=== PATIENT | female | born 1955 | race African-American/Black ===

== ENCOUNTER → 2016-10-14 | Day surgery (SDC) | payer OTHER ==
[2016-10-12 12:27] VITALS: BMI 46.4
[~2016-10-14] MED LIST: ACETAMINOPHEN 325 MG TABLET (FP) PO PRN; LACTATED RINGERS SOLUTION 1,000 ML IV SCH; LIDOCAINE HCL/PF 2% SDV 5ML VIAL ONE; MIDAZOLAM HCL 2 MG/2 ML SINGLE DOSE VIAL ONE; ONABOTULINUMTOXINA 200 UNIT/VIAL VIAL IM ONE; ONABOTULINUMTOXINA 200 UNIT/VIAL VIAL NR ONE; ONDANSETRON 4 MG/2 ML VIAL IVPUSH PRN; PROPOFOL 20 ML ONE; ROCURONIUM BROMIDE 50 MG/5 ML VIAL ONE; SUCCINYLCHOLINE CHLORIDE 200 MG/10 ML VIAL ONE; ceFAZolin SODIUM 1 GM VIAL IVPB ONE; oxyCODONE HCL 5 MG TABLET PO PRN
[2016-10-14 12:00] VITALS: TEMP 98
--- NOTE | 2016-10-14 12:21 | HP ---
DATE OF ADMISSION: HISTORY: The patient is a 60-year-old female with a history of overactive bladder. She has failed multiple medical and physical training. She still continues to have severe urgency, frequency, nocturia. She does have a history of chronic pancreatitis, thyroid cysts. She is morbidly obese. She has hypertension, anemia, sleep apnea, allergic rhinitis, degenerative joint disease, gastroesophageal reflux disease. MEDICATIONS: She is on multiple medications including lisinopril and NSAIDs. PHYSICAL EXAMINATION: Chest: Clear. Abdomen: Globus and nontender. Pelvis: Reveals a grade 2 cystorectocele with some atrophic vaginitis. Extremities: Show full range of motion with no clubbing, cyanosis, or edema. The patient will undergo a Botox bladder injection. The procedure has been explained fully to the patient, and she is aware. Kathy [id number]
[2016-10-14 12:30] VITALS: BP 148/76; PULSE 59
--- NOTE | 2016-10-14 14:40 | OP ---
DATE OF OPERATION: PREOPERATIVE DIAGNOSIS: Overactive bladder. POSTOPERATIVE DIAGNOSIS: Overactive bladder. OPERATIVE PROCEDURE: Cystourethroscopy and Botox injection into bladder mucosa. ANESTHESIA: General. DESCRIPTION OF PROCEDURE: Under above stated anesthesia, the patient is prepped and draped in the usual sterile manner. She is placed in the dorsal lithotomy position. Then 200 units of Botox was mixed with 20 mL of normal saline. Cystoscopy was performed in the usual fashion. The trigone revealed squamous metaplasia. The external genitalia revealed a grade 2 cystorectocele. There were signs of atraumatic vaginitis. Urine was collected for C and S and cytology. Ureteral orifices were within normal limits with efflux of clear urine. No lesions were noted. No calculi were seen. No trabeculation was evident. Injection of the Botox saline mixture in 1 cm increments was started 1 cm above the right ureteral orifice and a total of 5 injections in a row were performed from the right lateral wall of the bladder to the left lateral wall of the bladder. Another 5 injections were performed 1 cm above the 1st row. A 3rd row was also performed from the right lateral wall to the left lateral wall, and a 4th row of 5 injections of 1 mL mixture of Botox and saline was injected into the submucosa from the right lateral wall to the left lateral wall. There was 20 mL in total and 200 units of Botox was placed into the patient's bladder. No active bleeding was noted. Therefore, the bladder was emptied. The scope was removed. The patient tolerated the procedure well. She returned to the recovery room in good condition. [id number]
--- NOTE | 2016-10-17 13:26 | PATH ---
Cytology Non-Gynecological Report Patient Name: YESSENIA NAVAS [facility]. Rec. #: [id number] /Age/Gender: 1955 (Age: 60) / F Account: [id number] Location: [facility] SURGICAL Taken: 10/14/2016 Received: 10/14/2016 Reported: 10/17/2016 Physicians: Che Benson M.D. Specimen(s) Received URINE Clinical History Neurogenic bladder Final Diagnosis URINE FOR CYTOLOGY: SATISFACTORY FOR EVALUATION. NO MALIGNANT CELLS IDENTIFIED. REACTIVE UROTHELIAL CELLS. REACTIVE SQUAMOUS CELLS. RED BLOOD CELLS. Electronically Signed Jer Maynard M.D. Gross Description Received is 15 cc of yellow fluid fresh. One cytofunnel slide and one cell block are made.
== END | disposition home or self-care (01) ==
LOC: JASU-SURG 08:41
PROVIDERS: ATTEND Urology
PROC: 3E0K8GC Introduction of Other Therapeutic Substance into Genitourinary Tract, Via Natural or Artificial Opening Endoscopic (ICD-10-PCS; principal; 2016-10-14 09:00)
DX: N32.81 Overactive bladder (principal)
CPT/HCPCS: 52287; J0587; 87086; 87186; 88108; 88305-TC; 94760; J0585

== ENCOUNTER 2017-09-29 10:25 | Day surgery (SDC) | payer OTHER ==
[2017-09-28 10:39] VITALS: BMI 47.3
[2017-09-29] MEDS ORDERED: ONABOTULINUMTOXINA 200 UNIT/VIAL VIAL NR ONE (12:30)
[2017-09-29] MEDS ORDERED: ACETAMINOPHEN 325 MG TABLET (FP) PO PRN (12:39)
[2017-09-29] MEDS ORDERED: MIDAZOLAM HCL 2 MG/2 ML SINGLE DOSE VIAL ONE ×2 (12:50)
[2017-09-29] MEDS ORDERED: ceFAZolin SODIUM 1 GM VIAL IVPB ONE (12:55)
[2017-09-29] MEDS ORDERED: ONABOTULINUMTOXINA 200 UNIT/VIAL VIAL IM ONE (13:00)
[2017-09-29] MEDS ORDERED: oxyCODONE HCL 5 MG TABLET PO PRN (13:22)
[2017-09-29] MEDS ORDERED: PROMETHAZINE HCL 25 MG/1 ML VIAL IVPB PRN (13:22)
[2017-09-29] MEDS ORDERED: ONDANSETRON 4 MG/2 ML VIAL IVPUSH PRN (13:22)
[2017-09-29] MEDS ORDERED: LACTATED RINGERS SOLUTION 1,000 ML IV SCH (13:30)
[2017-09-29 14:05] VITALS: TEMP 98.6
[2017-09-29 14:18] VITALS: BP 140/69; PULSE 68
--- NOTE | 2017-09-29 15:26 | OP ---
DATE OF OPERATION: 09/29/2017 SURGEON: Rosa M Woods MD PREOPERATIVE DIAGNOSIS: Overactive neurogenic bladder with urgency, frequency, and hesitancy incontinence. POSTOPERATIVE DIAGNOSIS: Overactive neurogenic bladder with urgency, frequency, and hesitancy incontinence. OPERATIVE PROCEDURE: Cystourethroscopy, urethral dilation, and Botox injection in the bladder. ANESTHESIA: General. DESCRIPTION OF PROCEDURE: Under above stated anesthesia, patient was prepped and draped in the usual sterile manner. She was placed in the dorsal lithotomy position. External genitalia revealed atrophic vaginitis with a stenosed meatus. Using straight [place] sounds, the meatus was calibrated at 10-Czech and dilated to 26-Czech without difficulty or bleeding. Cystoscopy was then performed under direct vision. Urine was collected for culture as well as cytology. Inspection of the bladder revealed a fine grade 1 trabeculation. No lesions were noted. No calculi were seen. Ureteral orifices were within normal limits with efflux of clear urine. Therefore, 200 units of Botox mixed with 200 units of sterile water. The solution was then injected at 1 mL increments in a row of five 1 cm above the intertrigonal ridge beginning at the right and ending at the left. A second row of five 1 cm above that was performed. A third row and then a fourth row of five 1-cm units were injected. No active bleeding was noted. The bladder was emptied. The scope was removed. The patient tolerated the procedure well. She returned to the recovery room in good condition. ROSA M WOODS M.D. [id number]
--- NOTE | 2017-10-03 16:42 | PATH ---
Cytology Non-Gynecological Report Patient Name: YESSENIA NAVAS [facility]. Rec. #: [id number] /Age/Gender: 1955 (Age: 61) / F Account: [id number] Location: [facility] SURGICAL Taken: 09/29/2017 Received: 10/02/2017 Reported: 10/03/2017 Physicians: Che Benson M.D. Specimen(s) Received URINE VOIDED Clinical History Overactive neurogenic bladder Final Diagnosis URINE FOR CYTOLOGY: SATISFACTORY FOR EVALUATION. NEGATIVE FOR HIGH GRADE UROTHELIAL CARCINOMA. UROTHELIAL CELLS AND SCATTERED SQUAMOUS EPITHELIAL CELLS PRESENT. Electronically Signed Jeannine Arias M.D. Gross Description Approximately 20 cc of yellow fluid received fresh. Two cytofunnels prepared.
== END 2017-09-29 15:00 | disposition home or self-care (01) ==
LOC: JASU-SURG 10:25
PROVIDERS: ATTEND Urology
PROC: 3E0K8GC Introduction of Other Therapeutic Substance into Genitourinary Tract, Via Natural or Artificial Opening Endoscopic (ICD-10-PCS; principal; 2017-09-29 12:00)
DX: N32.81 Overactive bladder (principal); R35.0 Frequency of micturition; R39.11 Hesitancy of micturition; E11.9 Type 2 diabetes mellitus without complications
CPT/HCPCS: 88108; 94760; J0585

== ENCOUNTER 2017-12-18 13:36 | Observation (INO) | payer OTHER ==
[2017-12-18 14:16] VITALS: BMI 51.3
--- NOTE | 2017-12-18 14:24 | PDOC ---
Attending Attestation - Resident Resident Name: Keanu Arizmendi - HPI HPI: 12/22/17 01:34 Pt presents to the ED complaining of a one day history of substernal chest pain. Denies shortness of breath. History of abnormal EKG as per Dr. Portillo. Denies nausea, vomiting or lightheadness. - Physicial Exam PE: 12/22/17 01:46 Agree with resident exam. PAtient is in no acute distress and lungs are clear. Abdomen is non tender. - Medical Decision Making 12/22/17 01:47 Pt presents to the ED complaining of chest pain. Multiple risk factors for cardiac disease. EKG shows no signs of ischemia and cardiac enzymes are negative, but will admit to medicine for rule out ACS given her multiple risk factors.
--- NOTE | 2017-12-18 14:27 | PDOC ---
History of Present Illness - General Chief Complaint: Blood Pressure Problem Stated Complaint: CHEST PAIN Time Seen by Provider: 12/18/17 14:07 History Source: Patient, Primary Care Provider Exam Limitations: No Limitations - History of Present Illness Initial Comments: 12/18/17 14:22 The patient is a 62F with a PMH of anemia, asthma, DM, HTN, HL, GERD who presents to the ER with complaints of chest pain sent by her PCP for CP and abnormal EKG. The patient states that her CP started this morning, had a gradual onset, is described as pressure/heaviness that is retrosternal and radiates to her jaw. She denies any exacerbating or alleviating factors. She also endorses dysuria without hematuria or discharge. Past History - Past Medical History Allergies/Adverse Reactions: Allergies Allergy/AdvReac Type Severity Reaction Status Date / Time Latex, Natural Rubber Allergy Intermediate Rash Verified 12/18/17 14:13 erythromycin base Allergy Itching Verified 12/18/17 14:13 NSAIDS (Non-Steroidal Allergy Itching Verified 12/18/17 14:13 Anti-Inflamma ciprofloxacin [From Cipro] AdvReac Severe Nausea Verified 12/18/17 14:13 ciprofloxacin HCl AdvReac Severe Nausea Verified 12/18/17 14:13 [From Cipro] Home Medications: Ambulatory Orders Allopurinol [Zyloprim -] 300 mg PO DAILY 10/12/16 Amlodipine Besylate [Norvasc -] 10 mg PO DAILY 10/12/16 Cetirizine HCl [Zyrtec -] 10 mg PO DAILY 10/12/16 Dexlansoprazole [Dexilant] 60 mg PO DAILY 10/12/16 Docusate Sodium 100 mg PO BID PRN 10/12/16 Gabapentin 300 mg PO BID 10/12/16 Insulin Glargine,Hum.rec.anlog [Lantus Solostar PEN -] 50 units SQ DAILY Insulin NPH Human Isophane [Humulin N] 10 unit SQ AC 10/12/16 Levothyroxine [Synthroid -] 75 mcg PO DAILY 10/12/16 Lipase/Protease/Amylase [Tete Zamarripa 36,000 Units Capsule] 1 each PO BID 10/12/16 Metoprolol Tartrate 100 mg PO BID 10/12/16 Morphine Sulfate [Antonina] 10 mg PO TID 10/12/16 Valsartan [Diovan] 320 mg PO DAILY 10/12/16 metFORMIN HCL [Glucophage -] 500 mg PO BID 10/12/16 Cephalexin [Keflex] 500 mg PO TID 7 Days #21 capsule 09/29/17 Oxycodone HCl/Acetaminophen [Percocet 5-325 mg Tablet] 1 combo PO Q4H PRN #1 tablet MDD 6 09/29/17 Anemia: Yes Asthma: Yes Cancer: No Cardiac Disorders: No CVA: No COPD: No CHF: No Dementia: No Diabetes: Yes GI Disorders: Yes (REFLUX) Disorders: No HTN: Yes Hypercholesterolemia: No Kidney Stones: No Liver Disease: Yes (- FATTY LIVER) Seizures: No Thyroid Disease: No - Surgical History Abdominal Surgery: No Appendectomy: No Cardiac Surgery: No Cholecystectomy: No Lung Surgery: No Neurologic Surgery: No Orthopedic Surgery: Yes (arthroscopy knee) - Immunization History Immunization Up to Date: Yes - Suicide/Smoking/Psychosocial Hx Smoking Status: Yes Smoking History: Former smoker Have you smoked in the past 12 months: No Number of Cigarettes Smoked Daily: 10 If you are a former smoker, when did you quit?: 4 years ago Information on smoking cessation initiated: No 'Breaking Loose' booklet given: 12/14/11 Hx Alcohol Use: No Drug/Substance Use Hx: No Substance Use Type: Marijuana Hx Substance Use Treatment: No Review of Systems - Review of Systems Able to Perform ROS?: Yes Comments:: 12/18/17 14:49 GENERAL/CONSTITUTIONAL: No fever or chills. No weakness. HEAD, EYES, EARS, NOSE AND THROAT: No change in vision. No ear pain or discharge. No sore throat. CARDIOVASCULAR: Positive for chest pain. No palpitations or lightheadedness. RESPIRATORY: No cough, wheezing, shortness of breath, or hemoptysis. GASTROINTESTINAL: No nausea, vomiting, diarrhea, constipation, or abdominal pain. GENITOURINARY: No dysuria, frequency, hematuria, or change in urination. MUSCULOSKELETAL: No joint or muscle swelling or pain. No neck or back pain. SKIN: No rash or lesions. NEUROLOGIC: No headache, numbness, tingling, weakness, loss of consciousness, or change in strength/sensation. ENDOCRINE: No increased thirst. No abnormal weight change. HEMATOLOGIC/LYMPHATIC: No anemia, easy bleeding, or history of blood clots. ALLERGIC/IMMUNOLOGIC: No hives or skin allergy. Is the patient limited Slovak proficient: No *Physical Exam - Vital Signs Last Vital Signs Temp Pulse Resp BP Pulse Ox 97.8 F 56 L 20 165/72 98 12/18/17 14:13 12/18/17 14:13 12/18/17 14:13 12/18/17 14:13 12/18/17 14:13 - Physical Exam Comments: 12/18/17 16:33 GENERAL: Well developed, well nourished, morbidly obese. Awake and alert. No acute distress. HEENT: Normocephalic, atraumatic. Hearing grossly normal. Moist mucous membranes. PERRLA, EOMI. No conjunctival pallor. Sclera are non-icteric. NECK: Supple. Full ROM. CARDIOVASCULAR: Regular rate and rhythm, distant heart sounds likely 2/2 to body habitus. No murmurs, rubs, or gallops. PULMONARY: No evidence of respiratory distress. Lungs clear to auscultation bilaterally. No wheezing, rales or rhonchi. ABDOMINAL: Soft. Non-tender. Non-distended. No rebound or guarding. GENITOURINARY: No CVA tenderness bilaterally. MUSCULOSKELETAL: Normal range of motion at all joints. No bony deformities or tenderness. EXTREMITIES: No cyanosis. No clubbing. No edema. No calf tenderness or swelling. SKIN: Warm and dry. Normal capillary refill. No rashes. No jaundice. NEUROLOGICAL: Alert, awake, appropriate. Cranial nerves 2-12 intact. Normal speech. Gait is normal without ataxia. PSYCHIATRIC: Cooperative. Good eye contact. Appropriate mood and affect. Moderate Sedation - Procedure Monitoring Vital Signs: Vital Signs Temp Pulse Resp BP Pulse Ox 97.8 F 56 L 20 165/72 98 12/18/17 14:13 12/18/17 14:13 12/18/17 14:13 12/18/17 14:13 12/18/17 14:13 ED Treatment Course - LABORATORY CBC & Chemistry Diagram: 12/18/17 14:50 12/18/17 14:50 - RADIOLOGY Radiology Studies Ordered: Category Date Time Status CHEST X-RAY PORTABLE* [RAD] Stat Radiology 12/18/17 14:16 Ordered Medical Decision Making - Medical Decision Making 12/18/17 16:31 The patient is a 62F with an extensive PMH who presents with chest tightness. The patient has a HEART score of 4. Negative troponin, CBC, but UA indicates UTI. Will treat UTI and admit for obs tele. Pt is resting comfortably in bed. 12/18/17 16:44 I have endorsed the patient to [facility] for admission under Dr. Guzman. Will give 1 g ceftriaxone for UTI. *DC/Admit/Observation/Transfer Diagnosis at time of Disposition: Chest pain Qualifiers: Chest pain type: unspecified Qualified Code(s): R07.9 - Chest pain, unspecified - Discharge Dispostion Condition at time of disposition: Stable Decision to Admit order: Yes - Referrals Referrals: William Childs MD [Primary Care Provider] - - Patient Instructions - Post Discharge Activity
[2017-12-18] MEDS ORDERED: morphine SO4 SUSTAINED ACTING 15 MG TABLET.SA PO ONE (14:29)
[2017-12-18] MEDS ORDERED: morphine SO4 SUSTAINED ACTING 15 MG TABLET.SA ONE ×2 (14:44→21:16)
[2017-12-18 14:53] LABS: URINE APPEARANCE CLOUDY; URINE BILIRUBIN NEGATIVE (<2.0 mg/dL); URINE COLOR YELLOW; URINE GLUCOSE (UA) 3+ (NEGATIVE); URINE KETONE NEGATIVE (NEGATIVE); URINE LEUK ESTERASE 3+ (NEGATIVE); URINE NITRITE POSITIVE (NEGATIVE); URINE PROTEIN 1+ (NEGATIVE); URINE UROBILINOGEN NEGATIVE mg/dL (0.2-1.0)
[2017-12-18 14:57] LABS: BASO % 1.5 % (0-2.0); HEMOGLOBIN 13.4 GM/dL (10.7-15.3); LYMPH % 32.8 % (8-40); MCH 28.5 pg (25.7-33.7); MCHC 31.8 g/dl (32.0-36.0); MEAN CELL VOLUME 89.4 fl (80-96); MEAN PLT VOLUME 8.4 fl (7.5-11.1); MONO % 6.4 % (3.8-10.2); NEUT % 57.3 % (42.8-82.8); PLATELET COUNT 358 K/MM3 (134-434); RDW 15.7 % (11.6-15.6)
[2017-12-18 15:08] LABS: EPI CELLS MANY /HPF (FEW); URINE BACTERIA MANY /hpf (NONE SEEN); URINE MUCUS FEW
[2017-12-18 15:22] LABS: ALBUMIN 3.4 g/dl (3.4-5.0); ANION GAP 6 (8-16); BILIRUBIN,TOTAL 0.5 mg/dL (0.2-1.0); BLOOD UREA NITROGEN 12 mg/dL (7-18); CHLORIDE 101 mmol/L (98-107); CO2 29 mmol/L (21-32); CREATININE 0.8 mg/dL (0.55-1.02); POTASSIUM 4.4 mmol/L (3.5-5.1); SODIUM 136 mmol/L (136-145); TOT PROT 7.2 g/dl (6.4-8.2)
[2017-12-18 15:29] LABS: ALK PHOS 149 U/L (45-117)
[2017-12-18] MEDS ORDERED: INSULIN REGULAR HUMAN 100 UNITS/ML *VIAL IVPUSH ONE (15:34)
[2017-12-18] MEDS ORDERED: INSULIN REGULAR HUMAN 100 UNITS/ML *VIAL ONE ×2 (15:41→21:24)
[2017-12-18 16:30] LABS: SGOT/AST 21 U/L (15-37); SGPT/ALT 34 U/L (12-78)
[2017-12-18] MEDS ORDERED: CEFTRIAXONE 1,000 MG in DEXTROSE 5%-WATER - 50 ML IVPB ONE (16:46)
[2017-12-18 17:10] LABS: GLUCOSE,RANDOM 337 mg/dL (74-106)
[2017-12-18] MEDS ORDERED: CEFTRIAXONE 1 GM/50 ML BAG ONE (17:16)
--- NOTE | 2017-12-18 18:01 | EKG ---
Test Reason : Blood Pressure : / mmHG Vent. Rate : 061 BPM Atrial Rate : 061 BPM P-R Int : 152 ms QRS Dur : 082 ms QT Int : 430 ms P-R-T Axes : 049 -10 008 degrees QTc Int : 432 ms SINUS RHYTHM WITH MARKED SINUS ARRHYTHMIA CANNOT RULE OUT ANTERIOR INFARCT (CITED ON OR BEFORE 09-APR-2014) ABNORMAL ECG WHEN COMPARED WITH ECG OF 09-APR-2014 11:00, NO SIGNIFICANT CHANGE WAS FOUND Confirmed by BERTA AYERS MD ([id number]) on 12/18/2017 6:01:00 PM Referred By: Confirmed By:BERTA AYERS MD
[2017-12-18] MEDS ORDERED: DOCUSATE SODIUM 100 MG CAPSULE (FP) PO PRN (18:12)
--- NOTE | 2017-12-18 18:27 | HP ---
CHIEF COMPLAINT: EKG changes PCP: Dr. Olguin HISTORY OF PRESENT ILLNESS: This is a 62 year old female with PMHx of gout, morbid obesity, DM, neurogenic bladder, HTN, hysterectomy, tubal ligation, multiple bladder procedures, who was sent to the ED by her divemaster for EKG changes and intermittent chest pain. The patient reports that before her bladder botox in September 2017 she had an EKG that showed sinus bradycardia. She had the botox done at the time. She then states that she went to her pcp today and brought the EKGs and also states that sometimes she has tingling/tickling feeling in her left chest that is non-radiating. She denies any shortness of breath, however she reports that last week her scooter broke and she has had to walk more which is making her short of breath. She denies any dizziness, nausea, vomiting. She does report burning wit urination ER course was notable for: (1) Temp 97.8, pulse 56, BP 165/72, resp 20, O2 98% on RA (2) EKG with marked sinus arrhythmia (3) Trop x1 negative Recent Travel: denies PAST MEDICAL HISTORY: as above PAST SURGICAL HISTORY: as above Social History: Smoking: quit 4 years ago Alcohol: Occasional (had two drinks on her birthday) Drugs: Smokes marijuana on weekends Family History: Allergies Latex, Natural Rubber Allergy (Intermediate, Verified 12/18/17 14:13) Rash erythromycin base Allergy (Verified 12/18/17 14:13) Itching NSAIDS (Non-Steroidal Anti-Inflamma Allergy (Verified 12/18/17 14:13) Itching ciprofloxacin [From Cipro] Adverse Reaction (Severe, Verified 12/18/17 14:13) Nausea ciprofloxacin HCl [From Cipro] Adverse Reaction (Severe, Verified 12/18/17 14:13 ) Nausea HOME MEDICATIONS: Home Medications Medication Instructions Recorded Allopurinol [Zyloprim -] 300 mg PO DAILY 10/12/16 Amlodipine Besylate [Norvasc -] 10 mg PO DAILY 10/12/16 Cetirizine HCl [Zyrtec -] 10 mg PO DAILY 10/12/16 Dexlansoprazole [Dexilant] 60 mg PO DAILY 10/12/16 Docusate Sodium 100 mg PO BID PRN 10/12/16 Gabapentin 300 mg PO BID 10/12/16 Insulin Glargine,Hum.rec.anlog 50 units SQ DAILY 10/12/16 [Lantus Solostar PEN -] Insulin NPH Human Isophane 10 unit SQ AC 10/12/16 [Humulin N] Levothyroxine [Synthroid -] 75 mcg PO DAILY 10/12/16 Lipase/Protease/Amylase [Creon Dr 1 each PO BID 10/12/16 36,000 Units Capsule] Metoprolol Tartrate 100 mg PO BID 10/12/16 Morphine Sulfate [Antonina] 15 mg PO TID 10/12/16 Valsartan [Diovan] 320 mg PO DAILY 10/12/16 metFORMIN HCL [Glucophage -] 500 mg PO BID 10/12/16 REVIEW OF SYSTEMS CONSTITUTIONAL: Absent: fever, chills, diaphoresis, generalized weakness, malaise, loss of appetite, weight change HEENT: Absent: rhinorrhea, nasal congestion, throat pain, throat swelling, difficulty swallowing, mouth swelling, ear pain, eye pain, visual changes CARDIOVASCULAR: Abnormal EKG, occasional tingling in her chest. Absent: chest pain, syncope, palpitations, irregular heart rate, lightheadedness , peripheral edema RESPIRATORY: Absent: cough, shortness of breath, dyspnea with exertion, orthopnea, wheezing, stridor, hemoptysis GASTROINTESTINAL: Absent: abdominal pain, abdominal distension, nausea, vomiting, diarrhea, constipation, melena, hematochezia GENITOURINARY: Absent: dysuria, frequency, urgency, hesitancy, hematuria, flank pain, genital pain MUSCULOSKELETAL: Absent: myalgia, arthralgia, joint swelling, back pain, neck pain SKIN: Absent: rash, itching, pallor HEMATOLOGIC/IMMUNOLOGIC: Absent: easy bleeding, easy bruising, lymphadenopathy, frequent infections ENDOCRINE: Absent: unexplained weight gain, unexplained weight loss, heat intolerance, cold intolerance NEUROLOGIC: Absent: headache, focal weakness or paresthesias, dizziness, unsteady gait, seizure, mental status changes, bladder or bowel incontinence PSYCHIATRIC: Absent: anxiety, depression, suicidal or homicidal ideation, hallucinations. PHYSICAL EXAMINATION Vital Signs - 24 hr 12/18/17 14:13 Temperature 97.8 F Pulse Rate 56 L Respiratory 20 Rate Blood Pressure 165/72 O2 Sat by Pulse 98 Oximetry (%) GENERAL: Morbidly obese. Awake, alert, and fully oriented, in no acute distress. HEAD: Normal with no signs of trauma. EYES: Pupils equal, round and reactive to light, extraocular movements intact, sclera anicteric, conjunctiva clear. No lid lag. EARS, NOSE, THROAT: Ears normal, nares patent, oropharynx clear without exudates. Moist mucous membranes. NECK: Normal range of motion, supple without lymphadenopathy, JVD, or masses. LUNGS: Breath sounds equal, clear to auscultation bilaterally. No wheezes, and no crackles. No accessory muscle use. HEART: Regular rate and rhythm, normal S1 and S2 without murmur, rub or gallop. ABDOMEN: Soft, nontender, not distended, normoactive bowel sounds, no guarding, no rebound, no masses. No hepatomegaly or splenomegaly. MUSCULOSKELETAL: Normal range of motion at all joints. No bony deformities or tenderness. No CVA tenderness. UPPER EXTREMITIES: 2+ pulses, warm, well-perfused. No cyanosis. No clubbing. No peripheral edema. LOWER EXTREMITIES: Mild b/l lower extremity pitting edema. 2+ pulses, warm, well -perfused NEUROLOGICAL: Cranial nerves II-XII intact. Normal speech. Gait not observed PSYCHIATRIC: Cooperative. Good eye contact. Appropriate mood and affect. SKIN: Warm, dry, normal turgor, no rashes or lesions noted, normal capillary refill. Laboratory Results - last 24 hr 12/18/17 12/18/17 12/18/17 14:32 14:50 14:50 WBC 8.0 RBC 4.70 Hgb 13.4 Hct 42.0 MCV 89.4 MCH 28.5 MCHC 31.8 L RDW 15.7 H Plt Count 358 MPV 8.4 Neutrophils % 57.3 Lymphocytes % 32.8 D Monocytes % 6.4 Eosinophils % 2.0 Basophils % 1.5 Nucleated RBC % 0 Sodium 136 Potassium 4.4 Chloride 101 Carbon Dioxide 29 Anion Gap 6 L BUN 12 Creatinine 0.8 Creat Clearance w eGFR > 60 Random Glucose 337 H* Calcium 9.0 Total Bilirubin 0.5 D AST 21 ALT 34 Alkaline Phosphatase 149 H Creatine Kinase 91 Troponin I < 0.02 Total Protein 7.2 Albumin 3.4 Urine Color Yellow Urine Appearance Cloudy Urine pH 5.0 Ur Specific [place] 1.029 Urine Protein 1+ H Urine Glucose (UA) 3+ H Urine Ketones Negative Urine Blood 1+ H Urine Nitrite Positive Urine Bilirubin Negative Urine Urobilinogen Negative Ur Leukocyte Esterase 3+ H D Urine WBC (Auto) 268 Urine RBC (Auto) 8 Ur Epithelial Cells Many Urine Bacteria Many Urine Mucus Few Assessment: This is a 62 year old female with PMHx of gout, morbid obesity, DM, neurogenic bladder, HTN, hysterectomy, tubal ligation, multiple bladder procedures, who was sent to the ED by her divemaster for EKG changes and intermittent chest pain. Plan: 1) EKG changes? - Appears that no significant change was found when comparing EKG from today with EKG from 2014 - Trend troponins - Cardiac monitoring - F/u ECHO - F/u cardiology consult 2) UTI - Continue Ceftriaxone 3) DM - BGM ACHS - ISS ACHS - Levemir 50u sq daily - Continue Metformin 4) Gout - Continue Allopurinol 5) HTN - Continue Metoprolol bid - Continue Norvasc - Continue Diovan 6) Hypothyroidism - Continue Synthroid 7) F/E/N: - Diabetic diet - Monitor electrolytes 8) Prophylaxis: - OOB ambulating - Heparin 5,000u sq tid 9) Dispo: - Once condition improves CODE STATUS: FULL CODE Visit type - Emergency Visit Emergency Visit: Yes ED Registration Date: 12/18/17 Care time: The patient presented to the Emergency Department on the above date and was hospitalized for further evaluation of their emergent condition. - New Patient This patient is new to me today: Yes Date on this admission: 12/19/17 - Critical Care Critical Care patient: No Hospitalist Screening - Colonoscopy Questionnaire Colonoscopy Questionnaire: Colonoscopy Questionnaire - Patient: 50 - 75 years old and never had a screening colonoscopy: Unknown History of colon or rectal polyps, or CA: Unknown History of IBD, Crohn's disease or UC: Unknown History of abdominal radiation therapy as a child: Unknown - Relative: 1 with colon or rectal CA, or polyps at age 60 or younger: Unknown Colon or rectal CA diagnosed at age 45 or younger: Unknown Multiple relatives with colon or rectal CA: Unknown - Outcome: Screening Result: Negative Screen
[2017-12-18] MEDS ORDERED: METOPROLOL TARTRATE 50 MG TABLET (FP) ONE (20:38)
[2017-12-18] MEDS ORDERED: GABAPENTIN 100 MG CAPSULE (FP) ONE (20:38)
[2017-12-18] MEDS: METOPROLOL TARTRATE 50 MG TABLET (FP) PO SCH (21:15)
[2017-12-18] MEDS: GABAPENTIN 300 MG CAPSULE (FP) PO SCH (21:15)
[2017-12-18] MEDS: morphine SO4 SUSTAINED ACTING 15 MG TABLET.SA PO SCH (21:22)
[2017-12-18] MEDS: INSULIN SLIDING SCALE (NOVOLOG) 1 VIAL SQ SCH (21:27)
[2017-12-19] MEDS ORDERED: oxyCODONE HCL 5 MG TABLET PO ONE (04:02)
[2017-12-19] MEDS ORDERED: oxyCODONE HCL 5 MG TABLET ONE (04:10)
[2017-12-19] MEDS ORDERED: morphine SO4 SUSTAINED ACTING 15 MG TABLET.SA ONE ×4 (06:11→23:50)
[2017-12-19] MEDS: morphine SO4 SUSTAINED ACTING 15 MG TABLET.SA PO SCH ×3 (06:32→23:59)
[2017-12-19] MEDS ORDERED: metFORMIN HCL 500 MG TABLET (FP) ONE ×2 (06:35→17:58)
[2017-12-19] MEDS ORDERED: INSULIN (LEVEMIR) 100 UNITS/ML UNITS SQ ONE (06:35)
[2017-12-19] MEDS ORDERED: LEVOTHYROXINE NA 25 MCG TABLET (FP) ONE (06:35)
[2017-12-19] MEDS ORDERED: INSULIN REGULAR HUMAN 100 UNITS/ML *VIAL ONE (06:35)
[2017-12-19] MEDS: INSULIN SLIDING SCALE (NOVOLOG) 1 VIAL SQ SCH ×3 (07:02→17:42)
[2017-12-19] MEDS: metFORMIN HCL 500 MG TABLET (FP) PO SCH ×2 (07:02→17:43)
[2017-12-19] MEDS: INSULIN (LEVEMIR) 100 UNITS/ML UNITS SQ SCH (07:02)
[2017-12-19] MEDS: LEVOTHYROXINE NA 75 MCG TABLET (FP) PO SCH (07:03)
[2017-12-19 07:11] LABS: HEMATOCRIT 41.1 % (32.4-45.2); HEMOGLOBIN 13.3 GM/dL (10.7-15.3); MCH 29.1 pg (25.7-33.7); MCHC 32.4 g/dl (32.0-36.0); MEAN CELL VOLUME 89.8 fl (80-96); MEAN PLT VOLUME 8.5 fl (7.5-11.1); PLATELET COUNT 329 K/MM3 (134-434); RBC 4.57 M/mm3 (3.60-5.2); RDW 15.7 % (11.6-15.6); WHITE BLOOD COUNT 7.6 K/mm3 (4.0-10.0)
[2017-12-19 07:50] LABS: CHLORIDE 100 mmol/L (98-107); POTASSIUM 4.1 mmol/L (3.5-5.1); SODIUM 137 mmol/L (136-145)
[2017-12-19 07:56] LABS: ALBUMIN 3.4 g/dl (3.4-5.0); ALK PHOS 141 U/L (45-117); ANION GAP 5 (8-16); BILIRUBIN,TOTAL 0.8 mg/dL (0.2-1.0); BLOOD UREA NITROGEN 14 mg/dL (7-18); CO2 32 mmol/L (21-32); CREATININE 0.7 mg/dL (0.55-1.02); SGOT/AST 31 U/L (15-37); SGPT/ALT 35 U/L (12-78); TOT PROT 7.1 g/dl (6.4-8.2)
[2017-12-19 08:03] LABS: GLUCOSE,RANDOM 325 mg/dL (74-106)
--- NOTE | 2017-12-19 09:50 | PN ---
Progress Note, Physician History of Present Illness: 62 year old female with PMHx of gout, morbid obesity, DM, neurogenic bladder, HTN, hysterectomy, tubal ligation, multiple bladder procedures, who was sent to the ED by her fluxer for EKG changes and intermittent chest pain. The patient reports that before her bladder botox in September 2017 she had an EKG that showed sinus bradycardia. She had the botox done at the time. She then states that she went to her pcp today and brought the EKGs and also states that sometimes she has tingling/tickling feeling in her left chest that is non- radiating. She denies any shortness of breath, however she reports that last week her scooter broke and she has had to walk more which is making her short of breath. She denies any dizziness, nausea, vomiting. She does report burning wit urination - Current Medication List Current Medications: Active Medications Allopurinol (Zyloprim -) 300 mg PO DAILY [facility] Amlodipine Besylate (Norvasc -) 10 mg PO DAILY [facility] Docusate Sodium (Colace -) 100 mg PO BID PRN PRN Reason: CONSTIPATION Gabapentin (Neurontin -) 300 mg PO BID [facility] Last Admin: 12/18/17 21:15 Dose: 300 mg Insulin Aspart (Novolog Vial Sliding Scale -) 1 vial SQ ACHS [facility] PRN Reason: Protocol Last Admin: 12/19/17 07:02 Dose: 10 units Insulin Detemir (Levemir Vial) 50 units SQ DAILY@0700 [facility] Last Admin: 12/19/17 07:02 Dose: 10 unit Levothyroxine Sodium (Synthroid -) 75 mcg PO DAILY@0700 [facility] Last Admin: 12/19/17 07:03 Dose: 75 mcg Loratadine (Claritin -) 10 mg PO DAILY [facility] Metformin HCl (Glucophage -) 500 mg PO BIDAC [facility] Last Admin: 12/19/17 07:02 Dose: 500 mg Metoprolol Tartrate (Lopressor -) 100 mg PO BID [facility] Last Admin: 12/18/17 21:15 Dose: 100 mg Morphine Sulfate (Ms Contin -) 15 mg PO TID [facility] Stop: 12/25/17 21:59 Last Admin: 12/19/17 06:32 Dose: 15 mg Pancrelipase (Creon Dr 36,000 Units Capsule) 1 cap PO BIDWM [facility] Pantoprazole Sodium (Protonix -) 40 mg PO DAILY [facility] Valsartan (Diovan -) 320 mg PO DAILY VANDANA - Objective Vital Signs: Vital Signs Temperature 97.5 F L 12/19/17 07:03 Pulse Rate 60 12/19/17 07:03 Respiratory Rate 18 12/19/17 07:03 Blood Pressure 150/87 12/19/17 07:03 O2 Sat by Pulse Oximetry (%) 98 12/19/17 07:03 Labs: CBC, BMP 12/19/17 06:53 12/19/17 06:31 Problem List - Problems (1) Chest pain Assessment/Plan: - EKG changes-poor R wave progression - Trend troponins - Cardiac monitoring - F/u ECHO - F/u cardiology consult Code(s): R07.9 - CHEST PAIN, UNSPECIFIED Qualifiers: Chest pain type: unspecified Qualified Code(s): R07.9 - Chest pain, unspecified (2) Gout Assessment/Plan: - Continue Allopurinol Code(s): M10.9 - GOUT, UNSPECIFIED (3) Diabetes Assessment/Plan: - BGM ACHS - ISS ACHS - Levemir 50u sq daily - Continue Metformin - Diabetic diet - Monitor electrolytes - OOB ambulating - Heparin 5,000u sq tid Code(s): E11.9 - TYPE 2 DIABETES MELLITUS WITHOUT COMPLICATIONS (4) HTN (hypertension) Assessment/Plan: - Continue Metoprolol bid - Continue Norvasc - Continue Diovan Code(s): I10 - ESSENTIAL (PRIMARY) HYPERTENSION (5) UTI (urinary tract infection) Assessment/Plan: -UA AND CS --ROCEPHIN Code(s): N39.0 - URINARY TRACT INFECTION, SITE NOT SPECIFIED
[2017-12-19] MEDS: LIPASE/PROTEASE/AMYLASE 36,000 UNIT CAPSULE PO SCH ×2 (10:30→17:43)
[2017-12-19] MEDS ORDERED: INSULIN (NOVOLOG) ASPART 100 UNITS/ML 10ML VIAL ONE (11:18)
[2017-12-19] MEDS: METOPROLOL TARTRATE 50 MG TABLET (FP) PO SCH ×2 (11:30→23:44)
[2017-12-19] MEDS ORDERED: amLODIPine BESYLATE 5 MG TABLET (FP) ONE (11:32)
[2017-12-19] MEDS: GABAPENTIN 300 MG CAPSULE (FP) PO SCH ×2 (11:39→23:43)
[2017-12-19] MEDS: VALSARTAN 160 MG TABLET (UD) PO SCH (11:41)
[2017-12-19] MEDS: PANTOPRAZOLE 40 MG TABLET (FP) PO SCH (11:41)
[2017-12-19] MEDS: amLODIPine BESYLATE 10 MG TABLET (FP) PO SCH (11:41)
[2017-12-19] MEDS: ALLOPURINOL 300 MG TABLET (FP) PO SCH (11:41)
[2017-12-19] MEDS: LORATADINE 10 MG TABLET PO SCH (11:41)
--- NOTE | 2017-12-19 12:18 | CON.CARD ---
Consult Consult Specialty:: Cardiology Referred by:: Dr. Corado/Hospitalist Reason for Consultation:: chest pain, abnormal ekg - History of Present Illness Chief Complaint: chest pain History of Present Illness: 62 year old woman h/o obesity, DMII, HTN, mult bladder surgeries, chronically abnl ekg sent to ER for chest pain and abnl EKG. Pt states she was in her endo office yesterday and felt substernal chest tightness, she was noted to have an abnormal ekg there and was sent to the ER. States her pain lasted from then until she came to the ER then resolved soon after arrival and has not returned. denies any sob, palpitations, pnd, orthoponea, lightheadedness, dizziness. states she had a stress test 2015 that was normal. found to have a uti in the ER - History Source History Provided By: Patient, Medical Record Limitations to Obtaining History: No Limitations - Past Medical History Cardio/Vascular: Yes: HTN - Alcohol/Substance Use Hx Alcohol Use: No - Smoking History Smoking history: Former smoker Have you smoked in the past 12 months: No Aproximately how many cigarettes per day: 10 If you are a former smoker, when did you quit?: 4 years ago - Social History ADL: Independent History of Recent Travel: No Home Medications - Allergies Allergies/Adverse Reactions: Allergies Allergy/AdvReac Type Severity Reaction Status Date / Time Latex, Natural Rubber Allergy Intermediate Rash Verified 12/18/17 14:13 erythromycin base Allergy Itching Verified 12/18/17 14:13 NSAIDS (Non-Steroidal Allergy Itching Verified 12/18/17 14:13 Anti-Inflamma ciprofloxacin [From Cipro] AdvReac Severe Nausea Verified 12/18/17 14:13 ciprofloxacin HCl AdvReac Severe Nausea Verified 12/18/17 14:13 [From Cipro] - Home Medications Home Medications: Ambulatory Orders Allopurinol [Zyloprim -] 300 mg PO DAILY 10/12/16 Amlodipine Besylate [Norvasc -] 10 mg PO DAILY 10/12/16 Cetirizine HCl [Zyrtec -] 10 mg PO DAILY 10/12/16 Dexlansoprazole [Dexilant] 60 mg PO DAILY 10/12/16 Docusate Sodium 100 mg PO BID PRN 10/12/16 Gabapentin 300 mg PO BID 10/12/16 Insulin Glargine,Hum.rec.anlog [Lantus Solostar PEN -] 50 units SQ DAILY Insulin NPH Human Isophane [Humulin N] 10 unit SQ AC 10/12/16 Levothyroxine [Synthroid -] 75 mcg PO DAILY 10/12/16 Lipase/Protease/Amylase [Tete Zamarripa 36,000 Units Capsule] 1 each PO BID 10/12/16 Metoprolol Tartrate 100 mg PO BID 10/12/16 Morphine Sulfate [Antonina] 15 mg PO TID 10/12/16 Valsartan [Diovan] 320 mg PO DAILY 10/12/16 metFORMIN HCL [Glucophage -] 500 mg PO BID 10/12/16 Family Disease History - Family Disease History Family History: Denies Review of Systems - Review of Systems Constitutional: denies: No Symptoms, Chills, Diaphoresis, Fever, Lethargy, Loss of Appetite, Malaise, Night Sweats, Unintentional Wgt. Loss, Weakness, Other Eyes: denies: No Symptoms, Blind Spots, Blurred Vision, Double Vision, Eye Pain , Floaters, Photophobia, Recent Change in Vision, Other HENT: denies: No Symptoms, Difficult Swallowing, Ear Discharge, Ear Pain, Epistaxis, Gingival Bleeding, Hearing Loss, Mouth Swelling, Nasal Congestion, Ocular Prosthesis, Throat Pain, Toothache, Ringing in Ears, Other Neck: denies: No Symptoms, Decreased ROM, Lumps, Pain on Movement, Stiffness, Swollen Glands, Tenderness, Other Cardiovascular: reports: Chest Pain. denies: No Symptoms, Edema, Palpitations, Shortness of Breath, Other Respiratory: denies: No Symptoms, Cough, Exercise Intolerance, Hemoptysis, Orthopnea, PND, Snoring, SOB, SOB on Exertion, Wheezing, Other Gastrointestinal: denies: No Symptoms, Abdominal Pain, Bloating, Constipation, Diarrhea, Dysphagia, Indigestion, Melena, Nausea, Rectal Bleeding, Vomiting, Vomiting Blood, Other Genitourinary: denies: No Symptoms, Burning, Discharge, Dysuria, Flank Pain, Frequency, Hematuria, Incontinence, Lesions, Menses, Pain, Testicular Mass, Testicular Pain, Testicular Swelling, Urgency, Vaginal Bleeding, Other Breasts: denies: No Symptoms Reported, See HPI, Breast Implants, Discharge from Nipple, Lumps, Pain, Skin Changes, Other Musculoskeletal: denies: No Symptoms, Back Pain, Crepitus, Decreased ROM, Extremity Pain, Joint Pain, Joint Swelling, Muscle Pain, Muscle Cramps, Muscle Weakness, Other Integumentary: denies: No Symptoms, Blister, Bruising, Change in Color, Eczema, Erythema, Incision, Lesions, Lump, Pallor, Pruritis, Rash, Wound, Other Neurological: denies: No Symptoms, Change in LOC, Change in Speech, Confusion, Dizziness, Headache, Incoordination, Numbness, Parasthesia, Pre-Existing Deficit , Seizure, Syncope, Tremors, Unsteady Gait, Weakness, Other Endocrine: denies: No Symptoms, Excessive Sweating, Flushing, Increased Hunger, Increased Thirst, Intolerance to Cold, Intolerance to Heat, Unexplained Weight Gain, Unexplained Weight Loss, Other Hematology/Lymphatic: denies: No Symptoms, Easily Bruised, Excessive Bleeding, Swollen Glands, Other Psychiatric: denies: No Symptoms, Altered Sleep Pattern, Anxiety, Depression, Hallucinations, Panic, Paranoia, Suicidal, Other - Risk Factors Known Risk Factors: Yes: Diabetes Mellitus, Hypertension, Physical Inactivity Vital Signs: Vital Signs Temperature 97.5 F L 12/19/17 07:03 Pulse Rate 60 12/19/17 07:03 Respiratory Rate 18 12/19/17 07:03 Blood Pressure 150/87 12/19/17 07:03 O2 Sat by Pulse Oximetry (%) 98 12/19/17 07:03 Constitutional: Yes: No Distress, Calm, Obese Eyes: Yes: WNL, Conjunctiva Clear, EOM Intact, PERRL HENT: Yes: WNL, Atraumatic, Normocephalic Neck: Yes: WNL, Supple, Trachea Midline Respiratory: Yes: Regular, CTA Bilaterally, Diminished. No: Rales, Rhonchi, Wheezes Gastrointestinal: Yes: WNL, Normal Bowel Sounds, Soft. No: Distention, Tenderness Cardiovascular: Yes: WNL, Regular Rate and Rhythm. No: Bradycardia, Tachycardia , Pulse Irregular, Gallop, Rub, Varicosities JVD: No Carotid Bruit: No PMI: Non-Displaced Heart Sounds: Yes: S1, S2. No: Split S2, S3, S4, Clicks, Gallop, Rub, Bruit Murmur: No: Systolic Murmur, Diastolic Murmur Musculoskeletal: Yes: WNL Extremities: Yes: WNL Edema: No Peripheral Pulses WNL: Yes Peripheral Pulses: 2+ Left Doralis Pedis, 2+ Right Dorsalis Pedis Integumentary: Yes: WNL Neurological: Yes: WNL, Alert, Oriented Psychiatric: Yes: Alert, Oriented - Other Data Labs, Other Data: CBC, BMP 12/19/17 06:53 12/19/17 06:31 Troponin, BNP 12/18/17 12/18/17 12/19/17 14:50 21:35 02:25 Troponin I < 0.02 < 0.02 < 0.02 Troponin, BNP 12/18/17 12/18/17 12/19/17 14:50 21:35 02:25 Troponin I < 0.02 < 0.02 < 0.02 ekg-nsr 61bpm, nonspecific St abnl, T inversion V5-V6, II, III, aVF no sig change from past ekgs Echo: Pending Imaging - Results Chest X-ray: Report Reviewed, Image Reviewed EKG: Report Reviewed, Image Reviewed Other: Report Reviewed, Image Reviewed Assessment/Plan 62 year old woman h/o obesity, DMII, HTN, mult bladder surgeries, chronically abnl ekg sent to ER for chest pain and abnl EKG. Pt states she was in her endo office yesterday and felt substernal chest tightness, she was noted to have an abnormal ekg there and was sent to the ER. States her pain lasted from then until she came to the ER then resolved soon after arrival and has not returned. denies any sob, palpitations, pnd, orthoponea, lightheadedness, dizziness. states she had a stress test 2015 that was normal. found to have a uti in the ER Chest pain-atypical, unlikely ACS -cardiac enzymes wnl -ekg abnormal but no sig change from past ekgs -echo images reviewed at bedside, normal LV systolic function -at this time pt is acceptable for discharge from a cardiac standpoint with a plan for close outpatient f/up
[2017-12-19] MEDS ORDERED: CEFTRIAXONE 1,000 MG in DEXTROSE 5%-WATER - 50 ML IVPB ONE (18:23)
[2017-12-19] MEDS ORDERED: CEFTRIAXONE 1 GM/50 ML BAG ONE (18:37)
[2017-12-19] MEDS ORDERED: CEFTRIAXONE 1 GM in DEXTROSE 5%-WATER - 50 ML IVPB ONE (18:45)
[2017-12-20] MEDS: INSULIN SLIDING SCALE (NOVOLOG) 1 VIAL SQ SCH ×3 (00:20→12:46)
[2017-12-20] MEDS ORDERED: INSULIN (NOVOLOG) ASPART 100 UNITS/ML 10ML VIAL ONE ×3 (01:34→12:43)
[2017-12-20] MEDS: morphine SO4 SUSTAINED ACTING 15 MG TABLET.SA PO SCH ×2 (06:42→14:59)
[2017-12-20] MEDS ORDERED: morphine SO4 SUSTAINED ACTING 15 MG TABLET.SA ONE ×2 (07:54→14:59)
[2017-12-20 08:40] VITALS: TEMP 98.8
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
[2017-12-20] MEDS: metFORMIN HCL 500 MG TABLET (FP) PO SCH (10:07)
[2017-12-20] MEDS: GABAPENTIN 300 MG CAPSULE (FP) PO SCH (10:07)
[2017-12-20] MEDS: amLODIPine BESYLATE 10 MG TABLET (FP) PO SCH (10:08)
[2017-12-20] MEDS: PANTOPRAZOLE 40 MG TABLET (FP) PO SCH (10:08)
[2017-12-20] MEDS: VALSARTAN 160 MG TABLET (UD) PO SCH (10:08)
[2017-12-20] MEDS: LEVOTHYROXINE NA 75 MCG TABLET (FP) PO SCH (10:08)
[2017-12-20] MEDS: LORATADINE 10 MG TABLET PO SCH (10:09)
[2017-12-20] MEDS: ALLOPURINOL 300 MG TABLET (FP) PO SCH (10:09)
[2017-12-20] MEDS: LIPASE/PROTEASE/AMYLASE 36,000 UNIT CAPSULE PO SCH (10:09)
[2017-12-20] MEDS ORDERED: INSULIN (LEVEMIR) 100 UNITS/ML UNITS SQ ONE (10:11)
[2017-12-20] MEDS: INSULIN (LEVEMIR) 100 UNITS/ML UNITS SQ SCH (10:16)
[2017-12-20] MEDS: METOPROLOL TARTRATE 50 MG TABLET (FP) PO SCH (10:26)
[2017-12-20 15:17] VITALS: BP 122/65; PULSE 66
[2017-12-20] MEDS ORDERED: CEFTRIAXONE 1 GM in DEXTROSE 5%-WATER - 50 ML IVPB SCH (18:00)
[2017-12-20] MEDS ORDERED: INSULIN (LEVEMIR) 100 UNITS/ML UNITS SQ SCH (22:00)
== END 2017-12-20 15:20 | disposition home or self-care (01) ==
LOC: JER 13:36 → JERBED 17:13
PROVIDERS: ADMIT Internal Medicine; ATTEND Family Medicine
PROC: 3E033VG Introduction of Insulin into Peripheral Vein, Percutaneous Approach (ICD-10-PCS; principal; 2017-12-18)
PROC: 3E013VG Introduction of Insulin into Subcutaneous Tissue, Percutaneous Approach (ICD-10-PCS; 2017-12-18)
PROC: 3E03329 Introduction of Other Anti-infective into Peripheral Vein, Percutaneous Approach (ICD-10-PCS; 2017-12-18)
DX: R07.89 Other chest pain (principal); R94.31 Abnormal electrocardiogram [ECG] [EKG]; N39.0 Urinary tract infection, site not specified; I10 Essential (primary) hypertension; E78.5 Hyperlipidemia, unspecified; E11.9 Type 2 diabetes mellitus without complications; D64.9 Anemia, unspecified; J45.909 Unspecified asthma, uncomplicated; K21.9 Gastro-esophageal reflux disease without esophagitis; K76.0 Fatty (change of) liver, not elsewhere classified; M10.9 Gout, unspecified; Z91.040 Latex allergy status; Z88.1 Allergy status to other antibiotic agents; Z79.84 Long term (current) use of oral hypoglycemic drugs; Z87.891 Personal history of nicotine dependence
CPT/HCPCS: 36415; 71045-TC-FY; 80053; 81003; 81015; 82550; 82962; 84484; 85025; 85027; 87086; 87186; 93005; 93010; 93306-TC; 96365; 96367; 96372; 96375; 99285-25; G0378

== ENCOUNTER → 2018-06-11 | Day surgery (SDC) | payer OTHER ==
--- NOTE | 2018-06-13 18:05 | PATH ---
Cytology Non-Gynecological Report Patient Name: YESSENIA NAVAS [facility]. Rec. #: [id number] /Age/Gender: 1955 (Age: 62) / F Account: [id number] Location: RADIOLOGY INTER Taken: 06/11/2018 Received: 06/11/2018 Reported: 06/13/2018 Physicians: Kathy Ortiz M.D. Specimen(s) Received THYROID FNA LEFT Clinical History Left thyroid nodule, 2.33 x 1.59 x 2.42 cm Final Diagnosis THYROID, LEFT, FINE NEEDLE ASPIRATION: SATISFACTORY FOR EVALUATION. BETHESDA CLASS II: BENIGN. CYTOLOGIC FINDINGS ARE CONSISTENT WITH A BENIGN FOLLICULAR NODULE. SMALL FOLLICULAR CELLS, RARE MACROPHAGES, AND COLLOID PRESENT. Electronically Signed Jeannine Arias M.D. Gross Description Received are eight direct smears, four of which are air-dried and Diff-Quik stained, and four of which are alcohol fixed and Pap stained. Also received is 20 ml of bloody formalin from which one cellblock is prepared.
== END | disposition home or self-care (01) ==
LOC: JRADIR 09:48
PROVIDERS: ATTEND Internal Medicine Endocrinology, Diabetes & Metabolism
PROC: 0G9G3ZX Drainage of Left Thyroid Gland Lobe, Percutaneous Approach, Diagnostic (ICD-10-PCS; principal; 2018-06-11)
DX: E04.1 Nontoxic single thyroid nodule (principal)
CPT/HCPCS: 76942; 88173; 88305-TC

== ENCOUNTER → 2018-06-26 | Day surgery (SDC) | payer OTHER | END | disposition home or self-care (01) | LOC: JRADIR 09:37 → EDSTATUS 10:00 | PROVIDERS: ATTEND Internal Medicine Endocrinology, Diabetes & Metabolism | PROC: 0GJK3ZZ Inspection of Thyroid Gland, Percutaneous Approach (ICD-10-PCS; principal; 2018-06-26) | PROC: BG44ZZZ Ultrasonography of Thyroid Gland (ICD-10-PCS; 2018-06-26) | DX: E04.1 Nontoxic single thyroid nodule (principal) | CPT/HCPCS: 10022; 76536-TC; 76942 ==

== ENCOUNTER 2018-08-24 08:59 | Day surgery (SDC) | payer OTHER ==
[2018-08-23 09:49] VITALS: BMI 49.6
[~2018-08-24 08:59] MED LIST changes: -ACETAMINOPHEN 325 MG TABLET (FP) PO PRN; -LACTATED RINGERS SOLUTION 1,000 ML IV SCH; -LIDOCAINE HCL/PF 2% SDV 5ML VIAL ONE; -MIDAZOLAM HCL 2 MG/2 ML SINGLE DOSE VIAL ONE; -ONABOTULINUMTOXINA 200 UNIT/VIAL VIAL IM ONE; -ONDANSETRON 4 MG/2 ML VIAL IVPUSH PRN; -PROPOFOL 20 ML ONE; -ROCURONIUM BROMIDE 50 MG/5 ML VIAL ONE; -SUCCINYLCHOLINE CHLORIDE 200 MG/10 ML VIAL ONE; -ceFAZolin SODIUM 1 GM VIAL IVPB ONE; -oxyCODONE HCL 5 MG TABLET PO PRN
[2018-08-24] MEDS ORDERED: LIDOCAINE HCL/PF 2% SDV 5ML VIAL ONE (11:00)
[2018-08-24] MEDS ORDERED: MIDAZOLAM HCL 2 MG/2 ML SINGLE DOSE VIAL ONE (11:01)
[2018-08-24] MEDS ORDERED: PROPOFOL 20 ML ONE ×2 (11:01)
[2018-08-24] MEDS ORDERED: ceFAZolin SODIUM 1 GM VIAL ONE (11:15)
--- NOTE | 2018-08-24 11:35 | OP ---
DATE OF OPERATION: 08/24/2018 PREOPERATIVE DIAGNOSIS: Overactive bladder. POSTOPERATIVE DIAGNOSIS: Overactive bladder. OPERATIVE PROCEDURE: Botox injection. ANESTHESIA: General. DESCRIPTION OF PROCEDURE: Under above-stated anesthesia, patient is prepped and draped in the usual sterile manner. She is placed in the dorsal lithotomy position. A 30-degree continuous flow scope was introduced under direct vision. This revealed squamous metaplasia of the trigone. No lesions were noted. No calculi were seen. Ureteral orifices were within normal limits with efflux of clear urine. Botox 200 units was mixed with 20 mL of normal saline, 1 mL injections were then performed 1 cm above the interureteric ridge in a row of 5 starting from the right lateral wall moving onto the left lateral wall. Four rows were then performed. No active bleeding was noted. The bladder was emptied. Scope was removed. Patient tolerated the procedure well. She returned to the recovery room in good condition. Kathy [id number]
--- NOTE | 2018-08-24 11:37 | OP ---
Operative Note - Note: Operative Date: 08/24/18 Pre-Operative Diagnosis: oab Operation: bcg bladder instilation Post-Operative Diagnosis: Same as Pre-op Surgeon: Che Benson Anesthesia: General Specimens Removed: urine Estimated Blood Loss (mls): 0 Drains, Volume Out (mls): 0 Blood Volume Replaced (mls): 0 Fluid Volume Replaced (mls): 0 Operative Report Dictated: Yes
[2018-08-24] MEDS ORDERED: ONDANSETRON 4 MG/2 ML VIAL IVPUSH PRN (12:07)
[2018-08-24] MEDS ORDERED: oxyCODONE HCL 5 MG TABLET PO PRN (12:07)
[2018-08-24] MEDS ORDERED: LACTATED RINGERS SOLUTION 1,000 ML IV SCH (12:15)
[2018-08-24 13:03] VITALS: PULSE 58; TEMP 98
[2018-08-24 13:09] VITALS: BP 122/64
== END 2018-08-24 13:12 | disposition home or self-care (01) ==
LOC: JASU-SURG 08:59
PROVIDERS: ATTEND Urology
PROC: 3E0K8GC Introduction of Other Therapeutic Substance into Genitourinary Tract, Via Natural or Artificial Opening Endoscopic (ICD-10-PCS; principal; 2018-08-24 10:30)
DX: N32.81 Overactive bladder (principal)
CPT/HCPCS: 82962; 87086; 87186; J0585

== ENCOUNTER 2019-03-04 15:57 | Emergency (ER) | payer OTHER ==
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
[2019-03-04 16:10] VITALS: BP 167/69; PULSE 63; TEMP 98.2; BMI 50.1
[2019-03-04] MEDS ORDERED: DEXAMETHASONE LIQUID 0.5 MG/5 ML 240 ML BULK BOTTLE PO ONE (17:33)
[2019-03-04] MEDS ORDERED: LORazepam 1 MG TABLET PO ONE (17:34)
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
[2019-03-04] MEDS ORDERED: DEXAMETHASONE SOD PHOSPHATE 10 MG/1 ML VIAL ONE (17:41)
[2019-03-04] MEDS ORDERED: LORazepam 0.5 MG TABLET ONE (17:46)
[2019-03-04] MEDS ORDERED: morphine SO4 SUSTAINED ACTING 15 MG TABLET.SA PO ONE (19:24)
[2019-03-04] MEDS ORDERED: morphine SO4 SUSTAINED ACTING 15 MG TABLET.SA ONE (19:36)
== END 2019-03-04 18:16 | disposition home or self-care (01) ==
LOC: JERFT 15:57
DX: S13.4XXA Sprain of ligaments of cervical spine, initial encounter (principal); M25.562 Pain in left knee; M25.561 Pain in right knee; V86.11XA Passenger of ambulance or fire engine injured in traffic accident, initial encounter; Y92.488 Other paved roadways as the place of occurrence of the external cause; Y93.89 Activity, other specified; Y99.8 Other external cause status; I10 Essential (primary) hypertension; E11.9 Type 2 diabetes mellitus without complications; Z79.4 Long term (current) use of insulin; E03.9 Hypothyroidism, unspecified; M17.0 Bilateral primary osteoarthritis of knee; G47.39 Other sleep apnea; K21.9 Gastro-esophageal reflux disease without esophagitis; D64.9 Anemia, unspecified; J45.909 Unspecified asthma, uncomplicated
CPT/HCPCS: 73564-TC-LT-FY; 73564-TC-RT-FY; 73590-TC-LT-FY; 73590-TC-RT-FY; 99281-25

== ENCOUNTER 2019-09-13 06:32 | Day surgery (SDC) | payer OTHER ==
[2019-09-11 17:08] VITALS: BMI 50.4
[2019-09-13] MEDS ORDERED: ROPIVACAINE HCL 0.5% 30ML VIAL ONE (08:52)
[2019-09-13] MEDS ORDERED: MIDAZOLAM HCL 2 MG/2 ML SINGLE DOSE VIAL ONE ×3 (08:52→10:30)
[2019-09-13] MEDS ORDERED: ceFAZolin SODIUM 1 GM VIAL ONE (10:34)
[2019-09-13] MEDS ORDERED: ONDANSETRON 4 MG/2 ML VIAL ONE (10:34)
[2019-09-13] MEDS ORDERED: LIDOCAINE HCL/PF 2% SDV 5ML VIAL ONE (10:34)
[2019-09-13] MEDS ORDERED: oxyCODONE HCL 5 MG TABLET PO PRN ×2 (11:10)
[2019-09-13] MEDS ORDERED: ONDANSETRON 4 MG/2 ML VIAL IVPUSH PRN (11:10)
[2019-09-13] MEDS ORDERED: LACTATED RINGERS SOLUTION 1,000 ML IV SCH (11:15)
--- NOTE | 2019-09-13 12:42 | OP ---
DATE OF OPERATION: 09/13/2019 Done at [facility] SURGEON: Adeel Mckoy MD ANGLE SHEARER: BYRON Varela PREOPERATIVE DIAGNOSES: 1. Right shoulder rotator cuff tear. 2. Right shoulder adhesive capsulitis. 3. Right shoulder impingement syndrome. 4. Right shoulder acromioclavicular degenerative joint disease. 5. Right shoulder superior labral tear, anterior and posterior synovitis. 6. Long head biceps tendon tear. POSTOPERATIVE DIAGNOSES: 1. Right shoulder rotator cuff tear. 2. Right shoulder adhesive capsulitis. 3. Right shoulder impingement syndrome. 4. Right shoulder acromioclavicular degenerative joint disease. 5. Right shoulder superior labral tear, anterior and posterior synovitis. 6. Long head biceps tendon tear. PROCEDURE: 1. Right shoulder arthroscopy with arthroscopic rotator cuff repair, CPT code 09417. 2. Right shoulder arthroscopy with lysis and resection of adhesions, CPT code 27575. 3. Right shoulder arthroscopy with subacromial decompression, CPT code 93362. 4. Right shoulder arthroscopy with resection of the clavicle acromioclavicular joint, CPT code 02587. 5. Right shoulder arthroscopy with debridement, CPT code 80609. 6. Right shoulder arthroscopy with release of biceps, CPT code 65849. FINDINGS: 1. Extensive tearing biceps tendon with dislocation from the groove. 2. Superior labral tear anterior and posterior type 4. 3. Cartilage changes glenoid and humerus grade 2-3. 4. Full-thickness supraspinatus tear anterior portion. 5. Posterior labral fraying. 6. Type 3 acromion with anterior spurring. 7. Inferior spurs to clavicle, acromioclavicular joint disease. 8. Glenohumeral synovitis with adhesion to scar tissue. 9. Subacromial space thickened scar tissue most pronounced anteriorly and laterally. REPAIR TYPE: Biceps tendon was completely released and debrided along the superior labrum. A single mattress suture was placed into the supraspinatus and secured to bleeding bone bed using Earle rotator cuff anchor. DESCRIPTION OF PROCEDURE: Informed consent was obtained. The patient was taken to the operating room, where the upper extremity was prepped and draped in a sterile fashion. The shoulder was manipulated for a full range of motion. A posterior incision portal was made and directed to the glenohumeral joint. Under direct visualization, an anterior incision and portal was made. Extensive synovitis, as well as chondral injuries throughout the glenohumeral joint were debrided and removed. Any identified labral injuries, including the superior labral tear, anterior and posterior, and anterior labrum torn portions, were removed as well. The rotator cuff was visualized and noted to have a full-thickness tear. The edges were debrided. The posterior incision portal was redirected to the subacromial space where a lateral incision portal was made. Excessive and thickened scar tissue noted throughout the subacromial space, including bursal and scar tissue, were removed. The type 2 acromion was converted into a flattened type 1 using a bur for subacromial decompression. The distal inferior spur at the distal clavicle was also debrided with the use of an accessory portal in the acromioclavicular joint. The edges of the rotator cuff were identified. Sutures were placed into the rotator cuff and secured using anchors through the greater tuberosity. Prior to securing, a bleeding bed was made using a small bur, creating a bleeding surface of the rotator cuff insertion. The shoulder was then drained, a single suture was placed in all portals, a sterile dressing was placed and the patient was transferred to the recovery room without complication. The PA listed above was present and assisted at surgery. Their presence was absolutely medically necessary for the completion of the procedure. They helped hold the arthroscopy, pass instruments (and implants when indicated) and the procedure could not have been completed without their assistance. ADEEL MCKOY M.D. [id number]
[2019-09-13 12:54] VITALS: BP 151/73; PULSE 63; TEMP 97.9
--- NOTE | 2019-09-16 16:10 | PATH ---
Surgical Pathology Report Patient Name: YESSENIA NAVAS Med. Rec. #: [id number] /Age/Gender: 1955 (Age: 63) / F Account: [id number] Location: [facility] [place] [facility] Taken: 09/13/2019 Received: 09/13/2019 Reported: 09/16/2019 Physicians: Adeel Vail M.D. Specimen(s) Received SHAVINGS RIGHT SHOULDER Clinical History Right rotator cuff repair Final Diagnosis SHOULDER, RIGHT, ARTHROSCOPIC SHAVINGS: FIBROCARTILAGINOUS TISSUE, FIBROSYNOVIAL TISSUE, SCANT BONE AND SKELETAL MUSCLE. Electronically Signed Jania Garrett M.D. Gross Description Received in formalin, labeled "shavings right shoulder," is a 4.8 x 4.5 x 0.4 cm. aggregate of palmer-yellow soft tissue fragments. A ocean import representative portion is submitted in one cassette. /09/13/2019 saudi09/13/2019
== END 2019-09-13 12:46 | disposition home or self-care (01) ==
LOC: FASU 06:32
PROVIDERS: ATTEND Orthopaedic Surgery
PROC: 0RNJ4ZZ Release Right Shoulder Joint, Percutaneous Endoscopic Approach (ICD-10-PCS; 2019-09-13)
PROC: 0PB94ZZ Excision of Right Clavicle, Percutaneous Endoscopic Approach (ICD-10-PCS; 2019-09-13)
PROC: 0RBJ4ZZ Excision of Right Shoulder Joint, Percutaneous Endoscopic Approach (ICD-10-PCS; 2019-09-13)
PROC: 0LS14ZZ Reposition Right Shoulder Tendon, Percutaneous Endoscopic Approach (ICD-10-PCS; 2019-09-13)
PROC: 0LQ14ZZ Repair Right Shoulder Tendon, Percutaneous Endoscopic Approach (ICD-10-PCS; principal; 2019-09-13 10:30)
DX: M75.121 Complete rotator cuff tear or rupture of right shoulder, not specified as traumatic (principal); M75.01 Adhesive capsulitis of right shoulder; M75.41 Impingement syndrome of right shoulder; M19.011 Primary osteoarthritis, right shoulder; M24.111 Other articular cartilage disorders, right shoulder; M65.811 Other synovitis and tenosynovitis, right shoulder; M66.821 Spontaneous rupture of other tendons, right upper arm
CPT/HCPCS: 82962; 88304-TC; 94760

== ENCOUNTER 2020-01-29 09:18 | Day surgery (SDC) | payer OTHER ==
[2020-01-28 11:39] VITALS: BMI 49.2
[2020-01-29] MEDS ORDERED: ONABOTULINUMTOXINA 200 UNIT/VIAL VIAL NR ONE (12:00)
[2020-01-29] MEDS ORDERED: MIDAZOLAM HCL 2 MG/2 ML SINGLE DOSE VIAL ONE (12:31)
[2020-01-29] MEDS ORDERED: ceFAZolin SODIUM 1 GM VIAL ONE (12:31)
[2020-01-29] MEDS ORDERED: ceFAZolin SODIUM 1 GM VIAL IVPB ONE (12:57)
[2020-01-29] MEDS ORDERED: ACETAMINOPHEN 325 MG TABLET (FP) PO PRN (13:19)
[2020-01-29] MEDS ORDERED: oxyCODONE HCL 5 MG TABLET PO PRN (13:20)
[2020-01-29] MEDS ORDERED: ONDANSETRON 4 MG/2 ML VIAL IVPUSH PRN (13:20)
--- NOTE | 2020-01-29 13:24 | OP ---
Operative Note - Note: Operative Date: 01/29/20 Pre-Operative Diagnosis: refractatory oab Operation: cysto,dilation and botox bladder instillation Findings: GR.3, HYPEREMIC BLADDER MUCOSA AND BLADER NECK CONTRACTION Post-Operative Diagnosis: Same as Pre-op Surgeon: Che Benson Anesthesia: General Specimens Removed: URINE FOR C&S AND CYTOLOGY AND FISH Estimated Blood Loss (mls): 0 Drains & Tubes with Location: NONE Drains, Volume Out (mls): 0 Blood Volume Replaced (mls): 0 Fluid Volume Replaced (mls): 0 Operative Report Dictated: Yes
[2020-01-29] MEDS ORDERED: LACTATED RINGERS SOLUTION 1,000 ML IV SCH (13:30)
[2020-01-29] MEDS ORDERED: PROPOFOL 20 ML ONE ×2 (13:34)
--- NOTE | 2020-01-29 13:42 | CONS ---
DATE OF CONSULTATION: 01/29/2020 CHIEF COMPLAINT/HISTORY OF PRESENT ILLNESS: Patient is a 64-year-old female with history of overactive bladder refractory to medications and fluid restriction. She wakes up hourly and has severe daytime frequency. She also has urgency incontinence. She denies dura or hematuria. She denies any flank pain. She does have history of diabetes, hypertension, gastroesophageal reflux disease, and rheumatoid arthritis. ALLERGIES: The patient is allergic to CIPRO, NSAIDS, and LATEX. OBSTETRICAL HISTORY: She is G10, P2. SOCIAL HISTORY: She denies ethanolism or tobacco. MEDICATIONS: Presently she is on insulin, Diovan, Norvasc, and metformin. PHYSICAL EXAMINATION: General: Physical exam revealed a well-developed, middle-aged female in no apparent distress. Gastrointestinal: Her abdomen is globus, soft, nontender. There is no CVA tenderness. No hepatosplenomegaly. The bladder was not distended. Genitourinary: Vaginal mucosa is atrophic. No evidence of cystorectocele was found. Aaron's test is also negative. LABORATORY: BUN was 15, creatinine 0.8. Her urinalysis revealed a specific gravity of 1.030 with a pH of 5. PLAN: Patient has been on multiple anticholinergics as well as alpha 3 agonists, including large doses of Myrbetriq, without relief of symptoms. Presently she is scheduled to undergo Botox bladder injections. This was explained to patient in detail, and she agrees. ROSA M WOODS M.D. [id number]
[2020-01-29 14:10] VITALS: BP 146/85; PULSE 67; TEMP 98.1
--- NOTE | 2020-01-30 10:48 | OP ---
DATE OF OPERATION: DATE OF DICTATION: 01/29/2020 PREOPERATIVE DIAGNOSIS: Refractory overactive bladder. POSTOPERATIVE DIAGNOSIS: Refractory overactive bladder with bladder neck contraction. OPERATIVE PROCEDURE: Cystourethroscopy, bladder neck dilation and injection of Botox in bladder. ANESTHESIA: General. DESCRIPTION OF PROCEDURE: Under above-stated anesthesia patient was prepped and draped in the usual sterile manner. She was placed in the dorsal lithotomy position. Inspection revealed a grade 2 cystocele, a grade 1 rectocele. There was vaginal atrophy. Meatus appeared to be dry and scarred. Calibration of the meatus revealed it to be 12-Finnish. This was dilated to 28-Finnish without difficulty or bleeding. The cystoscope was inserted. Urine was collected for cytology and C&S. The bladder revealed squamous metaplasia of the trigone. Ureteral orifices were within normal limits with efflux of clear urine. Using the bladder needle 200 units of Botox was mixed with 20 mL of normal saline and 4 rows of individual 5 mL was injected into the bladder mucosa, submucosa and muscularis 1 inch above the interureteric ridge from right to left. A 2nd row was 2 cm above that, a 3rd row was 2 cm above that and a 4th row was 2 cm above that. In total the patient received 200 units of Botox. No active bleeding was noted. The bladder was emptied. The scope was removed. The patient tolerated the procedure well. She returned to the recovery room in good condition. Kathy [id number]
--- NOTE | 2020-02-01 13:24 | PATH ---
Cytology Non-Gynecological Report Patient Name: YESSENIA NAVAS Med. Rec. #: [id number] /Age/Gender: 1955 (Age: 64) / F Account: [id number] Location: [facility] Taken: 01/29/2020 Received: 01/29/2020 Reported: 02/01/2020 Physicians: Che Benson M.D. Specimen(s) Received URINE VOIDED Clinical History Overactive bladder Final Diagnosis URINE FOR CYTOLOGY: SATISFACTORY FOR EVALUATION. NEGATIVE FOR HIGH GRADE UROTHELIAL CARCINOMA. RARE UROTHELIAL FRAGMENTS, SCATTERED UROTHELIAL CELLS AND SQUAMOUS EPITHELIAL CELLS PRESENT. Comment: Operative report has been reviewed. Urothelial fragments are suggestive of prior instrumentation, lithiasis, or a low grade papillary neoplasm. Suggest clinical correlation. Electronically Signed Giovany Lemus M.D. Gross Description Approximately 30cc of yellow fluid received fresh. One cytospin prepared.
== END 2020-01-29 14:10 | disposition home or self-care (01) ==
LOC: JASU-SURG 09:18
PROVIDERS: ATTEND Urology
PROC: 3E0K8GC Introduction of Other Therapeutic Substance into Genitourinary Tract, Via Natural or Artificial Opening Endoscopic (ICD-10-PCS; principal; 2020-01-29 12:00)
DX: N32.81 Overactive bladder (principal); N32.0 Bladder-neck obstruction; E11.9 Type 2 diabetes mellitus without complications; I10 Essential (primary) hypertension; K21.9 Gastro-esophageal reflux disease without esophagitis; M06.9 Rheumatoid arthritis, unspecified; Z88.1 Allergy status to other antibiotic agents; Z88.8 Allergy status to other drugs, medicaments and biological substances; Z79.4 Long term (current) use of insulin; Z79.84 Long term (current) use of oral hypoglycemic drugs; Z91.040 Latex allergy status
CPT/HCPCS: 82962; 87086; 87186; 88108; 94760; J0585

== ENCOUNTER 2020-08-21 04:42 | Day surgery (SDC) | payer OTHER ==
[2020-08-18 15:46] VITALS: BMI 48.4
[2020-08-21] MEDS ORDERED: MIDAZOLAM HCL 2 MG/2 ML SINGLE DOSE VIAL ONE (11:21)
[2020-08-21] MEDS ORDERED: PROPOFOL 20 ML ONE ×3 (11:21→13:17)
[2020-08-21] MEDS ORDERED: ONABOTULINUMTOXINA 200 UNIT/VIAL VIAL NR ONE (11:30)
[2020-08-21] MEDS ORDERED: SODIUM CHLORIDE 0.9% P/F 10 ML VIAL IJ ONE (12:42)
[2020-08-21] MEDS ORDERED: ceFAZolin SODIUM 1 GM VIAL IVPB ONE (12:56)
[2020-08-21] MEDS ORDERED: ONABOTULINUMTOXINA 200 UNIT/VIAL VIAL IM ONE (13:01)
[2020-08-21] MEDS ORDERED: ONDANSETRON 4 MG/2 ML VIAL IVPUSH PRN (14:21)
[2020-08-21] MEDS ORDERED: oxyCODONE HCL 5 MG TABLET PO PRN ×2 (14:21)
[2020-08-21] MEDS ORDERED: LACTATED RINGERS SOLUTION 1,000 ML IV SCH (14:30)
[2020-08-21 15:05] VITALS: BP 180/79; PULSE 82; TEMP 98
== END 2020-08-21 15:00 | disposition home or self-care (01) ==
LOC: JASU-SURG 04:42
PROVIDERS: ATTEND Urology
PROC: 3E0K8GC Introduction of Other Therapeutic Substance into Genitourinary Tract, Via Natural or Artificial Opening Endoscopic (ICD-10-PCS; 2020-08-21)
PROC: 0T7D8ZZ Dilation of Urethra, Via Natural or Artificial Opening Endoscopic (ICD-10-PCS; principal; 2020-08-21 11:30)
DX: N32.81 Overactive bladder (principal); N35.92 Unspecified urethral stricture, female
CPT/HCPCS: 82962; 87086; 88108; 94760; J0585

== ENCOUNTER 2020-11-06 04:38 | Inpatient (IN) | payer OTHER ==
[2020-11-03 17:39] VITALS: BMI 48.6
[2020-11-06] MEDS ORDERED: fentaNYL CITRATE 250 MCG/5 ML VIAL ONE (11:21)
[2020-11-06] MEDS ORDERED: BUPIVACAINE HCL 50 ML ONE (11:43)
[2020-11-06] MEDS ORDERED: THROMBIN (BOVINE) 5,000 UNIT VIAL TP ONE ×2 (11:46→13:20)
[2020-11-06] MEDS ORDERED: LIDOCAINE 1%/EPI 1:100000 (50 ML MULTI DOSE VIAL) ONE (11:46)
[2020-11-06] MEDS ORDERED: DEXMEDETOMIDINE HCL 200 MCG/2 ML IVPB ONE (11:51)
[2020-11-06] MEDS ORDERED: ACETAMINOPHEN INJECTION 100 ML IVPB ONE (11:52)
[2020-11-06] MEDS ORDERED: ceFAZolin SODIUM 1 GM VIAL IVPB ONE (12:50)
[2020-11-06] MEDS ORDERED: LIDOCAINE 1%/EPI 1:100000 (20 ML MULTI DOSE VIAL) INF ONE (13:15)
[2020-11-06] MEDS ORDERED: BUPIVACAINE HCL/PF 0.5% (5MG/ML) 10 ML VIAL IJ ONE (13:15)
[2020-11-06] MEDS ORDERED: PROPOFOL 20 ML ONE (13:43)
[2020-11-06] MEDS ORDERED: ACETAMINOPHEN 325 MG TABLET (FP) PO PRN (15:13)
[2020-11-06] MEDS ORDERED: IBUPROFEN 600 MG TABLET (FP) PO PRN (15:13)
[2020-11-06] MEDS ORDERED: SODIUM CHLORIDE 1,000 ML IV SCH (15:15)
[2020-11-06] MEDS ORDERED: PROMETHAZINE HCL 25 MG/1 ML VIAL IVPUSH PRN (15:18)
[2020-11-06] MEDS: oxyCODONE HCL 5 MG TABLET PO PRN (19:12)
[2020-11-06] MEDS ORDERED: PT OWN MED DRAWER 7, Y5N ONE (19:16)
[2020-11-06] MEDS: metFORMIN HCL 500 MG TABLET (FP) PO SCH (19:17)
[2020-11-06] MEDS: MONTELUKAST NA 10 MG TABLET PO SCH (21:02)
[2020-11-06] MEDS: hydrALAZINE HCL 25 MG TABLET (FP) PO SCH (21:02)
[2020-11-06] MEDS: METOPROLOL TARTRATE 50 MG TABLET (FP) PO SCH (21:02)
[2020-11-06] MEDS ORDERED: ACETAMINOPHEN 1000 MG/100 ML VIAL (NON FORMULARY) IVPB ONE (21:45)
[2020-11-06] MEDS: LIPASE/PROTEASE/AMYLASE 36,000 UNIT CAPSULE PO SCH (21:49)
[2020-11-06] MEDS: VALSARTAN 160 MG TABLET PO SCH (21:49)
[2020-11-07] MEDS: oxyCODONE HCL 5 MG TABLET PO PRN ×3 (01:36→23:03)
[2020-11-07] MEDS: metFORMIN HCL 500 MG TABLET (FP) PO SCH ×2 (06:25→16:22)
[2020-11-07] MEDS: LIPASE/PROTEASE/AMYLASE 36,000 UNIT CAPSULE PO SCH ×2 (06:25→16:22)
[2020-11-07] MEDS: LEVOTHYROXINE NA 200 MCG TABLET PO SCH (06:26)
[2020-11-07] MEDS ORDERED: PT OWN MED DRAWER 7, Y5N ONE ×3 (09:34→16:12)
[2020-11-07] MEDS: hydrALAZINE HCL 25 MG TABLET (FP) PO SCH ×2 (09:38→21:27)
[2020-11-07] MEDS: METOPROLOL TARTRATE 50 MG TABLET (FP) PO SCH ×2 (09:39→21:22)
[2020-11-07] MEDS: CALCIUM (OYSTER SHELL) 500 MG TABLET (FP) PO SCH (09:40)
[2020-11-07] MEDS: NIFEdipine E.R. 90 MG TABLET PO SCH (09:40)
[2020-11-07] MEDS: PANTOPRAZOLE 40 MG TABLET PO SCH (09:40)
[2020-11-07] MEDS: CALCITRIOL 0.25 MCG CAPSULE (FP) PO SCH (09:41)
[2020-11-07] MEDS: CHLORTHALIDONE 25 MG TABLET PO SCH (09:42)
[2020-11-07] MEDS ORDERED: BENZOCAINE/MENTH/CETYLPYRD CL 1 EACH LOZENGE MM PRN (10:46)
[2020-11-07] MEDS ORDERED: HYDROmorphone HCL/PF 1 MG/ML VIAL IVPB PRN (10:58)
[2020-11-07] MEDS: ACETAMINOPHEN 1000 MG/100 ML VIAL (NON FORMULARY) IVPB SCH ×3 (11:29→23:33)
[2020-11-07] MEDS: KETOROLAC TROMETHAMINE 30 MG/1 ML VIAL IVPUSH SCH ×2 (11:30→17:07)
[2020-11-07] MEDS: MONTELUKAST NA 10 MG TABLET PO SCH (21:22)
[2020-11-07] MEDS: VALSARTAN 160 MG TABLET PO SCH (21:22)
[2020-11-07] MEDS: HEPARIN NA (PORCINE) 5,000 UNITS/ML 1ML VIAL SQ SCH (21:24)
[2020-11-07] MEDS: ONDANSETRON 4 MG/2 ML VIAL IVPB PRN (22:37)
[2020-11-08] MEDS: ACETAMINOPHEN 1000 MG/100 ML VIAL (NON FORMULARY) IVPB SCH (05:34)
[2020-11-08] MEDS ORDERED: PT OWN MED DRAWER 7, Y5N ONE ×2 (05:37→08:58)
[2020-11-08] MEDS: LIPASE/PROTEASE/AMYLASE 36,000 UNIT CAPSULE PO SCH ×2 (06:02→17:18)
[2020-11-08] MEDS: metFORMIN HCL 500 MG TABLET (FP) PO SCH ×2 (06:02→16:40)
[2020-11-08] MEDS: oxyCODONE HCL 5 MG TABLET PO PRN ×3 (06:03→18:58)
[2020-11-08] MEDS: LEVOTHYROXINE NA 200 MCG TABLET PO SCH (06:04)
[2020-11-08] MEDS: hydrALAZINE HCL 25 MG TABLET (FP) PO SCH ×2 (09:02→21:09)
[2020-11-08] MEDS: METOPROLOL TARTRATE 50 MG TABLET (FP) PO SCH ×3 (09:02→21:17)
[2020-11-08] MEDS: CHLORTHALIDONE 25 MG TABLET PO SCH (09:02)
[2020-11-08] MEDS: CALCITRIOL 0.25 MCG CAPSULE (FP) PO SCH (09:03)
[2020-11-08] MEDS: PANTOPRAZOLE 40 MG TABLET PO SCH (09:03)
[2020-11-08] MEDS: CALCIUM (OYSTER SHELL) 500 MG TABLET (FP) PO SCH (09:03)
[2020-11-08] MEDS: NIFEdipine E.R. 90 MG TABLET PO SCH (09:03)
[2020-11-08] MEDS: HEPARIN NA (PORCINE) 5,000 UNITS/ML 1ML VIAL SQ SCH ×2 (09:04→21:09)
[2020-11-08 10:26] LABS: BLOOD UREA NITROGEN 11.7 mg/dL (7-18); CALCIUM 9.6 mg/dL (8.5-10.1)
[2020-11-08] MEDS: ONDANSETRON 4 MG/2 ML VIAL IVPB PRN (15:54)
[2020-11-08] MEDS: VALSARTAN 160 MG TABLET PO SCH (21:09)
[2020-11-08] MEDS: MONTELUKAST NA 10 MG TABLET PO SCH (21:09)
[2020-11-09] MEDS: oxyCODONE HCL 5 MG TABLET PO PRN ×2 (00:11→08:02)
[2020-11-09] MEDS ORDERED: HYDROmorphone HCl 2 MG/ML VIAL IVPB PRN (05:45)
[2020-11-09 05:48] VITALS: BP 131/55; PULSE 62; TEMP 98.2
[2020-11-09] MEDS: metFORMIN HCL 500 MG TABLET (FP) PO SCH (06:00)
[2020-11-09] MEDS: LIPASE/PROTEASE/AMYLASE 36,000 UNIT CAPSULE PO SCH (06:00)
[2020-11-09] MEDS: LEVOTHYROXINE NA 200 MCG TABLET PO SCH (06:00)
[2020-11-09] MEDS: ONDANSETRON 4 MG/2 ML VIAL IVPB PRN ×2 (08:03→08:20)
[2020-11-09] MEDS: HEPARIN NA (PORCINE) 5,000 UNITS/ML 1ML VIAL SQ SCH (09:00)
[2020-11-09] MEDS: CALCITRIOL 0.25 MCG CAPSULE (FP) PO SCH (09:01)
[2020-11-09] MEDS: CHLORTHALIDONE 25 MG TABLET PO SCH (09:01)
[2020-11-09] MEDS: hydrALAZINE HCL 25 MG TABLET (FP) PO SCH (09:01)
[2020-11-09] MEDS: NIFEdipine E.R. 90 MG TABLET PO SCH (09:01)
[2020-11-09] MEDS: PANTOPRAZOLE 40 MG TABLET PO SCH (09:01)
[2020-11-09] MEDS: CALCIUM (OYSTER SHELL) 500 MG TABLET (FP) PO SCH (09:01)
[2020-11-09] MEDS: METOPROLOL TARTRATE 50 MG TABLET (FP) PO SCH (09:04)
== END 2020-11-09 10:00 | disposition home or self-care (01) | DRG 404 ==
LOC: JASUSAT 04:38 → J8W 18:42 → JASUSAT 11-07 22:59
PROVIDERS: ADMIT Surgery; ATTEND Surgery
PROC: 0GTH0ZZ Resection of Right Thyroid Gland Lobe, Open Approach (ICD-10-PCS; 2020-11-06)
PROC: 0GSL0ZZ Reposition Right Superior Parathyroid Gland, Open Approach (ICD-10-PCS; 2020-11-06)
PROC: 0GTG0ZZ Resection of Left Thyroid Gland Lobe, Open Approach (ICD-10-PCS; principal; 2020-11-06 11:30)
DX: E04.1 Nontoxic single thyroid nodule (principal); E11.9 Type 2 diabetes mellitus without complications; K21.9 Gastro-esophageal reflux disease without esophagitis; I10 Essential (primary) hypertension; E66.9 Obesity, unspecified; Z68.42 Body mass index [BMI] 45.0-49.9, adult
CPT/HCPCS: 36415; 71046-TC-FY; 80048; 80053; 80061; 80076; 81003; 82164; 82962; 83036; 83721; 84436; 84443; 84479; 85025; 85610; 85730; 88307-TC; 93005; 93010; 94760; C9803; J0131; J1644; U0003; U0005

== ENCOUNTER 2022-12-19 03:58 | Day surgery (SDC) | payer OTHER ==
[2022-12-13 11:45] VITALS: BMI 49.7
[~2022-12-19 03:58] MED LIST changes: +BUPIVACAINE HCL/PF 0.5% (5 MG/ML) 30 ML VIAL IJ ONE; +DEXAMETHASONE SOD PHOSPHATE 10 MG/1 ML VIAL IM ONE; +IOHEXOL 180 MG/1 ML ML IJ ONE; +LIDOCAINE HCL 1% PRESERVATIVE FREE - 30ML VIAL IJ ONE; -ONABOTULINUMTOXINA 200 UNIT/VIAL VIAL NR ONE
[2022-12-19] MEDS ORDERED: DEXAMETHASONE SOD PHOSPHATE 10 MG/1 ML VIAL ONE (07:33)
[2022-12-19] MEDS ORDERED: LIDOCAINE HCL/PF 1% SDV 5ML VIAL ONE (07:33)
[2022-12-19] MEDS ORDERED: BUPIVACAINE HCL/PF 0.25% (2.5MG/ML) 10 ML VIAL ONE (07:33)
[2022-12-19 10:16] VITALS: RESP 20
[2022-12-19] MEDS ORDERED: PROPOFOL 20 ML ONE (12:19)
[2022-12-19] MEDS ORDERED: MIDAZOLAM HCL 2 MG/2 ML SINGLE DOSE VIAL ONE (12:19)
[2022-12-19] MEDS ORDERED: TRIAMCINOLONE ACET 40MG/1ML VIAL ONE (12:36)
[2022-12-19] MEDS ORDERED: LIDOCAINE HCL 1% PRESERVATIVE FREE - 30ML VIAL IJ ONE (12:37)
[2022-12-19] MEDS ORDERED: BUPIVACAINE HCL/PF 0.5% (5 MG/ML) 30 ML VIAL IJ ONE (12:37)
[2022-12-19] MEDS ORDERED: DEXAMETHASONE SOD PHOSPHATE 10 MG/1 ML VIAL IM ONE (12:37)
[2022-12-19] MEDS ORDERED: IOHEXOL 180 MG/1 ML ML IJ ONE (12:37)
[2022-12-19 13:29] VITALS: TEMP 96
[2022-12-19 14:13] VITALS: BP 129/56; PULSE 49
== END 2022-12-19 13:29 | disposition home or self-care (01) ==
LOC: JASU-SURG 03:58
PROVIDERS: ATTEND Physical Medicine & Rehabilitation
PROC: 3E023BZ Introduction of Anesthetic Agent into Muscle, Percutaneous Approach (ICD-10-PCS; 2022-12-19)
PROC: 3E0233Z Introduction of Anti-inflammatory into Muscle, Percutaneous Approach (ICD-10-PCS; principal; 2022-12-19 11:30)
DX: M16.11 Unilateral primary osteoarthritis, right hip (principal)
CPT/HCPCS: 76000-TC-FY; 82962; J1100

== ENCOUNTER 2023-07-03 04:09 | Day surgery (SDC) | payer OTHER ==
[2023-06-29 11:47] VITALS: BMI 49.2
[2023-07-03] MEDS ORDERED: LIDOCAINE HCL/PF 1% SDV 5ML VIAL ONE (07:51)
[2023-07-03] MEDS ORDERED: LIDOCAINE HCL/PF 2% SDV 5ML VIAL ONE (07:51)
[2023-07-03] MEDS ORDERED: BUPIVACAINE HCL/PF 0.5% (5MG/ML) 10 ML VIAL ONE (07:51)
[2023-07-03] MEDS ORDERED: BUPIVACAINE HCL/PF 0.75% 10 ML VIAL ONE (07:51)
[2023-07-03] MEDS ORDERED: ONDANSETRON 4 MG/2 ML VIAL ONE (09:02)
[2023-07-03] MEDS ORDERED: MIDAZOLAM HCL 2 MG/2 ML SINGLE DOSE VIAL ONE (09:03)
[2023-07-03] MEDS ORDERED: FENTANYL CITRATE/PF 50 MCG/ML VIAL ONE ×2 (09:03→09:28)
[2023-07-03] MEDS ORDERED: PROPOFOL 20 ML ONE (09:25)
[2023-07-03] MEDS ORDERED: TRIAMCINOLONE ACET 40MG/1ML VIAL ONE (09:30)
[2023-07-03] MEDS ORDERED: DEXAMETHASONE SOD PHOSPHATE 10 MG/1 ML VIAL ONE (09:30)
[2023-07-03] MEDS ORDERED: IOHEXOL 180 MG/1 ML ML IJ ONE (09:37)
[2023-07-03] MEDS ORDERED: TRIAMCINOLONE ACET 40MG/1ML VIAL IM ONE (09:38)
[2023-07-03] MEDS ORDERED: BUPIVACAINE HCL/PF 0.25% (2.5MG/ML) 10 ML VIAL IJ ONE (09:38)
[2023-07-03] MEDS ORDERED: LIDOCAINE HCL 1% PRESERVATIVE FREE - 30ML VIAL IJ ONE (09:38)
[2023-07-03 10:00] VITALS: RESP 20; TEMP 97.2
[2023-07-03 10:19] VITALS: BP 180/86; PULSE 60
== END 2023-07-03 10:27 | disposition home or self-care (01) ==
LOC: JASU-SURG 04:09
PROVIDERS: ATTEND Physical Medicine & Rehabilitation
PROC: 3E0U3BZ Introduction of Anesthetic Agent into Joints, Percutaneous Approach (ICD-10-PCS; 2023-07-03)
PROC: 3E0U33Z Introduction of Anti-inflammatory into Joints, Percutaneous Approach (ICD-10-PCS; principal; 2023-07-03 09:00)
DX: M16.11 Unilateral primary osteoarthritis, right hip (principal)
CPT/HCPCS: 76000-TC-FY; 82962; J1100

== ENCOUNTER 2025-04-08 06:10 | Day surgery (SDC) | payer OTHER ==
[2025-04-07 10:31] VITALS: BMI 47.3
[2025-04-08 09:13] VITALS: RESP 20
[2025-04-08] MEDS ORDERED: MIDAZOLAM HCL 2 MG/2 ML SINGLE DOSE VIAL ONE (11:29)
[2025-04-08] MEDS: IOHEXOL 180 MG/1 ML ML IJ ONE ×3 (11:37)
[2025-04-08] MEDS: BUPIVACAINE HCL/PF 0.25% (2.5MG/ML) 10 ML VIAL IJ ONE ×3 (11:46)
[2025-04-08] MEDS: TRIAMCINOLONE ACETONIDE 40 MG/ML 10 ML VIAL IJ ONE ×2 (11:46)
[2025-04-08 12:24] VITALS: PULSE 60
[2025-04-08 12:57] VITALS: BP 142/70; TEMP 98
== END 2025-04-08 12:30 | disposition home or self-care (01) ==
LOC: JASU-SURG 06:10
PROVIDERS: ATTEND Physical Medicine & Rehabilitation
PROC: 3E0U3BZ Introduction of Anesthetic Agent into Joints, Percutaneous Approach (ICD-10-PCS; 2025-04-08)
PROC: 3E0U33Z Introduction of Anti-inflammatory into Joints, Percutaneous Approach (ICD-10-PCS; principal; 2025-04-08 09:45)
DX: M16.11 Unilateral primary osteoarthritis, right hip (principal)
CPT/HCPCS: 76000-TC-FY; 82962